=== PATIENT | female | born 1980 | race Two or more races ===

== ENCOUNTER 2020-11-24 14:25 | Emergency (ER) | payer OTHER ==
[~2020-11-24] VITALS: Ht 157.5 cm; Wt 94.8 kg
[2020-11-24 15:29] LABS: Urine Bacteria FEW /hpf (None Seen); Urine Blood 3+ /uL (Negative); Urine Specific Gravity 1.018 (1.001-1.035); Urine WBC 3 /hpf (0 - 5)
[2020-11-24 18:05] VITALS: BP 129/78
[2020-11-24] MEDS ORDERED: KETOROLAC TROMETH 60MG/2ML VIAL IM ONE (18:30)
== END 2020-11-24 18:20 | disposition home or self-care (01) ==
LOC: ER 14:25
DX: M54.16 Radiculopathy, lumbar region (principal); N39.0 Urinary tract infection, site not specified
CPT/HCPCS: 81001; 96372; 99283; J1885